=== PATIENT | male | born 1975 | race African-American/Black ===

== ENCOUNTER 2017-01-26 05:44 | Emergency (ER) | payer BC ==
[2017-01-26 06:15] LABS: INFLUENZA A SCREEN NEGATIVE (NEGATIVE); INFLUENZA B SCREEN NEGATIVE (NEGATIVE)
== END 2017-01-26 06:47 | disposition home or self-care (01) ==
LOC: ER 05:44
PROVIDERS: Nurse Practitioner
DX: J06.9 Acute upper respiratory infection, unspecified (principal); Z87.01 Personal history of pneumonia (recurrent)
CPT/HCPCS: 71020; 87804; 99285